=== PATIENT | female | born 1935 | race Caucasian/White ===

== ENCOUNTER 2016-08-20 13:30 | Emergency (ER) | payer OTHER ==
[2016-08-20 13:42] VITALS: RESP 20; TEMP 98.1; O2SAT 99
[2016-08-20 14:40] LABS: BASO % 0.7 % (0.0-2.0); EOS # 0.2 K/uL (0.0-0.7); EOS % 2.9 % (0.0-4.0); HEMATOCRIT 27.9 % (34.0-47.0); LYMPH % 34.6 % (20.0-40.0); MEAN CELL VOLUME 82.8 fL (81.0-99.0); MEAN CORPUSCULAR HEMOGLOBIN 26.8 pg (27.0-31.0); MEAN CORPUSCULAR HGB CONC 32.4 g/dL (33.0-37.0); MEAN PLATELET VOLUME 6.9 fL (7.2-11.7); MONO # 0.5 K/uL (0.0-0.8); MONO % 8.8 % (0.0-10.0); WHITE BLOOD COUNT 5.6 K/uL (4.8-10.8)
--- NOTE | 2016-08-20 14:45 | C.PDOC ---
History Of Present Illness 81-year-old female, presents to the emergency department with complaints of generalized body pain. Patient was seen by Dr Avilez at the end of 07/04, who referred her to follow-up in clinic. She was c/o the same symptoms at that time and he started her on Protonix and Mobic without change in condition. Patient notes that over the past few days she has been experiencing dyspnea, which is associated with generalized pain in abdomen, leg, hips, abdomen and back. Patient denies any changes in PO intake. Denies fevers, cough, or any other associated symptoms. No other complaints at this time. Time Seen by Provider: 08/20/16 13:51 Chief Complaint (Nursing): Shortness Of Breath History Per: Patient History/Exam Limitations: no limitations Past Medical History Reviewed: Historical Data, Nursing Documentation, Vital Signs Vital Signs: Last Vital Signs Temp 98.1 F 08/20/16 13:42 Pulse 101 H 08/20/16 13:42 Resp 20 08/20/16 13:42 BP 147/91 H 08/20/16 13:42 Pulse Ox 99 08/20/16 15:22 - Medical History PMH: HTN Surgical History: Cholecystectomy Family History: States: Unknown Family Hx - Social History Hx Alcohol Use: No Hx Substance Use: No - Immunization History Hx Tetanus Toxoid Vaccination: No Hx Influenza Vaccination: No Hx Pneumococcal Vaccination: No Review Of Systems Except As Marked, All Systems Reviewed And Found Negative. Constitutional: Positive for: Malaise. Negative for: Fever Cardiovascular: Negative for: Chest Pain, Palpitations Respiratory: Positive for: SOB with Excertion Gastrointestinal: Positive for: Abdominal Pain. Negative for: Nausea, Vomiting , Diarrhea Musculoskeletal: Positive for: Back Pain, Leg Pain, Other (Hip pain) Physical Exam - Physical Exam Appears: Non-toxic, No Acute Distress Skin: Warm, Dry, No Rash Head: Atraumatic, Normacephalic Eye(s): bilateral: Normal Inspection Nose: Normal Oral Mucosa: Moist Lips: Normal Appearing Neck: Normal ROM Cardiovascular: Rhythm Regular Respiratory: Normal Breath Sounds, No Accessory Muscle Use Gastrointestinal/Abdominal: Soft, Tenderness (diffuse, mild), No Guarding, No Rebound Extremity: Normal ROM Neurological/Psych: Oriented x3, Normal Speech ED Course And Treatment - Laboratory Results Result Diagrams: 08/20/16 14:36 08/20/16 14:36 Lab Interpretation: Abnormal (Mild anemia with Hgb 9.0, Slight elevation of BUN 22.) ECG: Interpreted By Me ECG Rhythm: Sinus Rhythm, 1st Degree HB, R BBB ECG Interpretation: Abnormal O2 Sat by Pulse Oximetry: 99 Pulse Ox Interpretation: Normal - Radiology CXR: Interpreted by Me CXR Interpretation: Yes: Infiltrates (perihilar right greater than left.) Reevaluation Time: 15:33 Reassessment Condition: Unchanged (Patient is in no distress. She is lying supine and breathing is easy and regular. her abdomen remains soft. Son states that Dr Avilez referred her for care in the clinic since she has no insurance.) Disposition Counseled Patient/Family Regarding: Studies Performed, Diagnosis, Need For Followup, Rx Given - Disposition Referrals: [facility] [Outside] Disposition: HOME/ ROUTINE Disposition Time: 15:37 Condition: STABLE Additional Instructions: She can take Gas-X for abdominal bloating and gas. She should keep her diet bland and try to increase her fluids. She should follow up in the clinic within the next week. Prescriptions: Azithromycin 1 tab PO DAILY #6 tab traMADol [Ultram] 50 mg PO TID PRN #10 tab PRN Reason: Pain, Severe (8-10) Instructions: Simethicone (By mouth), Dyspnea (ED) - Clinical Impression Clinical Impression: Dyspnea, Abdominal bloating - Scribe Statement The provider has reviewed the documentation as recorded by the Bhumi Benitez All medical record entries made by the Dexteribpatricia were at my direction and personally dictated by me. I have reviewed the chart and agree that the record accurately reflects my personal performance of the history, physical exam, medical decision making, and the department course for this patient. I have also personally directed, reviewed, and agree with the discharge instructions and disposition.
[2016-08-20 14:52] LABS: CHLORIDE 99 mmol/L (98-107)
[2016-08-20 14:53] LABS: POTASSIUM 4.8 mmol/L (3.6-5.2); SODIUM 135 mmol/L (132-148)
[2016-08-20 14:55] LABS: ALB/GLOB RATIO 1.1 (1.0-2.1); ALKALINE PHOSPHATASE 108 U/L (38-126); AST/SGOT 22 U/L (14-36); BILIRUBIN,TOTAL 0.5 mg/dL (0.2-1.3); CARBON DIOXIDE 27 mmol/L (22-30); GFR AFRICAN-AMERICAN 57; TOTAL PROTEIN 7.4 g/dL (6.3-8.3)
[2016-08-20 14:56] LABS: ALT/SGPT 15 U/L (9-52); BLOOD UREA NITROGEN 22 mg/dL (7-17); GLUCOSE,RANDOM 104 mg/dL (65-105)
[2016-08-20 14:58] LABS: RBC URINE 1 /hpf (0-3); URINE BACTERIA RARE (<OCC); URINE BILIRUBIN NEGATIVE (NEGATIVE); URINE BLOOD NEGATIVE (NEGATIVE); URINE COLOR Yellow (YELLOW); URINE GLUCOSE (UA) NORMAL (Normal); URINE KETONE NEGATIVE (NEGATIVE); URINE LEUKOCYTE ESTERASE 1+ Leu/uL (Negative); URINE PROTEIN NEGATIVE (NEGATIVE); URINE UROBILINOGEN NORMAL mg/dL (0.2-1.0); WBC URINE 7 /hpf (0-5)
--- NOTE | 2016-08-20 15:12 | RAD ---
PROCEDURE: CHEST RADIOGRAPH, 1 VIEW HISTORY: SOB COMPARISON: None available. FINDINGS: LUNGS: Prominent perihilar lung markings especially on the right. Otherwise no evidence of acute pulmonary disease. PLEURA: No pneumothorax or pleural fluid seen. CARDIOVASCULAR: Normal. OSSEOUS STRUCTURES: No significant abnormalities. VISUALIZED UPPER ABDOMEN: Normal. OTHER FINDINGS: None. IMPRESSION: Prominent perihilar lung markings especially on the right.
[2016-08-20 16:00] VITALS: BP 156/77; PULSE 84
--- NOTE | 2016-08-25 10:18 | CARD ---
APPROVED REPORT EKG Measurement Heart [id number] <Conclusion> Sinus rhythm with 1st degree AV block Right bundle branch block Abnormal ECG
== END 2016-08-20 16:01 | disposition home or self-care (01) ==
LOC: C.ER 13:30
DX: R06.00 Dyspnea, unspecified (principal); R14.0 Abdominal distension (gaseous)

== ENCOUNTER 2016-10-10 11:28 | Emergency (ER) | payer OTHER ==
[2016-10-10 11:49] VITALS: O2SAT 97
--- NOTE | 2016-10-10 12:26 | C.PDOC ---
History Of Present Illness 81 y/o female with Hx of Arthritis and HTN presents to ED with complaints of abnormal sob, dizziness and general body aches. As per son symptoms were mild 2- 3 days ago but worsen yesterday and patient developed urine frequency. Patient denies fever, chills, cp, n/v/d or any other complaints at this time. Time Seen by Provider: 10/10/16 12:16 Chief Complaint (Nursing): Shortness Of Breath History Per: Patient, Family (SON) History/Exam Limitations: language barrier Onset/Duration Of Symptoms: Days Past Medical History Reviewed: Historical Data, Nursing Documentation, Vital Signs Vital Signs: Last Vital Signs Temp 98.2 F 10/10/16 11:35 Pulse 94 H 10/10/16 11:35 Resp 20 10/10/16 12:07 BP 150/75 10/10/16 11:35 Pulse Ox 97 10/10/16 12:31 - Medical History PMH: HTN Surgical History: Cholecystectomy Family History: States: Unknown Family Hx - Social History Hx Alcohol Use: No Hx Substance Use: No - Immunization History Hx Tetanus Toxoid Vaccination: No Hx Influenza Vaccination: No Hx Pneumococcal Vaccination: No Review Of Systems Constitutional: Negative for: Fever, Chills Cardiovascular: Negative for: Chest Pain Respiratory: Positive for: Shortness of Breath Gastrointestinal: Negative for: Nausea, Vomiting, Diarrhea Genitourinary: Positive for: Frequency Musculoskeletal: Positive for: Other (General Body pain) Skin: Negative for: Rash Neurological: Positive for: Dizziness. Negative for: Weakness Physical Exam - Physical Exam Additional Physical Exam Comments: Constitutional: No acute distress. Head: Normocephalic. Atraumatic. Eyes: PERRL. ENT: Moist mucous membranes. Neck: Supple. Cardiovascular: Murmur, Radial pulse 2+ bilaterally. Chest: No tenderness. Respiratory: Clear to auscultation bilaterally. GI: Soft. Nontender. Nondistended. Back: No CVA tenderness. Musculoskeletal: No tenderness or swelling of extremities. Skin: No rash. Neurologic: Alert, no focal deficit. ED Course And Treatment ECG Interpretation: Abnormal Interpretation Of ECG: Sinus Rhythm with 1st Degree AV block. Right Bundle branch block. No change from previous Rate From EC (bpm) O2 Sat by Pulse Oximetry: 97 (RA) Medical Decision Making Medical Decision Making: CXR no acute disease. Patient in no acute distress. Labs unremarkable. Vital signs stable. Will discharge home, f/u PMD, return to ER for worsening pain, fever, vomiting, dyspnea. WBC 5.[address] 132/4.9/99/25/20/1.2 UA 1 WBC, 3 SQ epithelial, negative nitrages and leuks, negative blood, negative ketones Influenza negative. Disposition - Disposition Disposition: HOME/ ROUTINE Disposition Time: 14:29 Condition: STABLE Instructions: Viral Syndrome (ED) - Clinical Impression Clinical Impression: Body aches - Scribe Statement The provider has reviewed the documentation as recorded by the Scribpatricia Kimble All medical record entries made by the Bhumi were at my direction and personally dictated by me. I have reviewed the chart and agree that the record accurately reflects my personal performance of the history, physical exam, medical decision making, and the department course for this patient. I have also personally directed, reviewed, and agree with the discharge instructions and disposition.
[2016-10-10] MEDS ORDERED: Sodium Chloride 0.9% 1,000 ML IV STA (12:39)
[2016-10-10] MEDS ORDERED: Sodium Chloride 0.9% 1,000 ML ONE (13:06)
[2016-10-10 13:19] LABS: BASO % 0.7 % (0.0-2.0); EOS # 0.2 K/uL (0.0-0.7); EOS % 4.3 % (0.0-4.0); HEMATOCRIT 28.2 % (34.0-47.0); LYMPH # 1.9 K/uL (1.0-4.3); LYMPH % 32.8 % (20.0-40.0); MEAN CORPUSCULAR HEMOGLOBIN 24.6 pg (27.0-31.0); MEAN CORPUSCULAR HGB CONC 31.4 g/dL (33.0-37.0); MONO # 0.5 K/uL (0.0-0.8); MONO % 9.4 % (0.0-10.0); RBC URINE 1 /hpf (0-3); RED CELL DISTRIBUTION WIDTH 16.1 % (11.5-14.5); URINE BILIRUBIN NEGATIVE (NEGATIVE); URINE BLOOD NEGATIVE (NEGATIVE); URINE COLOR Straw (YELLOW); URINE GLUCOSE (UA) NORMAL (Normal); URINE KETONE NEGATIVE (NEGATIVE); URINE LEUKOCYTE ESTERASE NEG Leu/uL (Negative); URINE PROTEIN NEGATIVE (NEGATIVE); URINE UROBILINOGEN NORMAL mg/dL (0.2-1.0); WBC URINE 1 /hpf (0-5); WHITE BLOOD COUNT 5.7 K/uL (4.8-10.8)
[2016-10-10 13:22] LABS: POTASSIUM 4.9 mmol/L (3.6-5.2)
[2016-10-10 13:24] LABS: BILIRUBIN,TOTAL 0.5 mg/dL (0.2-1.3); TOTAL PROTEIN 7.2 g/dL (6.3-8.3)
[2016-10-10 13:40] LABS: MEAN CELL VOLUME 78.3 fL (81.0-99.0)
--- NOTE | 2016-10-10 14:35 | RAD ---
PROCEDURE: CHEST RADIOGRAPH, 1 VIEW HISTORY: body aches COMPARISON: None available. FINDINGS: LUNGS: Mild venous congestion. Right hilar prominence. PLEURA: No pneumothorax or pleural fluid seen. CARDIOVASCULAR: Normal. OSSEOUS STRUCTURES: No significant abnormalities. VISUALIZED UPPER ABDOMEN: Normal. OTHER FINDINGS: None. IMPRESSION: Mild venous congestion. Right hilar prominence.
[2016-10-10 14:58] VITALS: BP 139/68; PULSE 84; RESP 14; TEMP 97.8
== END 2016-10-10 14:58 | disposition home or self-care (01) ==
LOC: C.ER 11:28
DX: M79.1 Myalgia (principal); I10 Essential (primary) hypertension
CPT/HCPCS: 71010; 80053; 81001; 83690; 85025; 87086; 87804; 96361; 96374; 99285; J1885; J7040